=== PATIENT | female | born 2000 | race Two or more races ===

== ENCOUNTER 2024-05-14 01:50 | Emergency (ER) | payer OTHER ==
[~2024-05-14] VITALS: Ht 154.9 cm; Wt 70.3 kg
[~2024-05-14 01:50] MED LIST: INTESTINEX680 M1 PO; LEVSIN0.125 MG PO; ONDANSETRON ODT4 MG SL; PEPCID AC20 MG PO
[2024-05-14] MEDS ORDERED: METHYLPREDNISOLONE SOD SUCC 125 MG VIAL IV STA (02:08)
[2024-05-14] MEDS ORDERED: ALBUTEROL SULFATE 3 ML/2.5 MG AMPUL.NEB IH SCH (02:15)
[2024-05-14 02:44] LABS: HEMATOCRIT 36.8 % (36.0-45.00); HEMOGLOBIN 12.8 g/dL (12.0-15.00); MEAN CELL VOLUME 80.8 fL (80.00-100.00); MEAN CORPUSCULAR HEMOGLOBIN 28.1 pg (27.00-32.0); MEAN CORPUSCULAR HGB CONC 34.8 g/dl (32.0-36.0); PLATELET COUNT 261 K/uL (150-450); RED BLOOD COUNT 4.56 M/uL (4.00-6.00); RED CELL DISTRIBUTION WIDTH 12.8 % (11.5-14.5)
[2024-05-14 03:15] LABS: ALBUMIN 4.1 gm/dL (3.4-5.0); ALKALINE PHOSPHATASE 67 U/L (50-136); ALT/SGPT 32 U/L (12-78); ANION GAP 13 (10.0-20.0); AST/SGOT 23 U/L (15-37); BILIRUBIN TOTAL 0.29 mg/dL (0.3-1.2); BLOOD UREA NITROGEN 15 mg/dL (7-18); BUN CREA RATIO 15 (7.0-25.0); CALCIUM 9.1 mg/dL (8.5-10.1); CARBON DIOXIDE 22 mEq/L (21-32); CHLORIDE 110 mmol/L (98-107); GFR 69.33; GLOBULINA 3.5 G/DL (2.4-3.5); GLUCOSE FASTING 103 mg/dL (65-100); OSMOLALITY SERUM 282 MOSM/KG (275-295); POTASSIUM 3.51 mEq/L (3.5-5.1); SODIUM 141 mmol/L (136-145); TOTAL PROTEIN 7.6 gm/dL (6.4-8.2)
[2024-05-14 03:25] LABS: HCG QUANTITATIVE < 1 mUI/mL (1-3)
[2024-05-14 03:29] LABS: PH,URINE 7.5 (5.0-8.0); URINE APPEARANCE Clear; URINE BILIRRUBIN Negative (NEGATIVE); URINE BLOOD Negative; URINE COLOR Yellow; URINE GLUCOSE Negative (NEGATIVE); URINE KETONE Negative (NEGATIVE); URINE LEUKOCYTE Negative; URINE NITRATE Negative; URINE PROTEIN Negative (NEGATIVE)
[2024-05-14 03:32] LABS: URINE BACTERIA 1661.6 uL (0.0-1933); URINE EPITHELIAL CELLS 32.3 uL (0.0-38.8); URINE RBC 7.7 uL (0.0-20.8); URINE WBC 9.4 uL (0.0-23.2)
[2024-05-14] MEDS ORDERED: SINGULAIR10 MG PO (05:10)
[2024-05-14] MEDS ORDERED: ALBUTEROL2.5 MG/3 M IH (05:10)
[2024-05-14] MEDS ORDERED: OSEL75CA PO (05:10)
[2024-05-14] MEDS ORDERED: ZYNCOF 20-400120 ML PO (05:10)
[2024-05-14] MEDS ORDERED: BUDEO.25 IH (05:10)
[2024-05-14 06:31] LABS: ABG PH 7.459 (7.35-7.45); ABG pCO2 29.8 mmHg (35-45); BASE EXCESS -1.9 mmol/l; BICARBONATE 20.7 mmol/l (23-25); SaO2 95.5 %; Tco2 21.6 mmol/l; allen test SATISFACTORY; o2 21 %; puncture site RADIAL LEFT
== END 2024-05-14 05:20 ==
LOC: ER 01:52
PROVIDERS: General Practice
DX: J10.1 Influenza due to other identified influenza virus with other respiratory manifestations (principal); R06.02 Shortness of breath; J45.909 Unspecified asthma, uncomplicated; R50.9 Fever, unspecified
CPT/HCPCS: 36415; 71046; 82803; 94640; 96365; 99284; J3490